=== PATIENT | female | born 1955 | race Caucasian/White ===

== ENCOUNTER → 2016-06-25 | Outpatient (REF) | payer BC ==
[~2016-06-25] MED LIST: COUM2.5T11 PO; LEVO25TA34 PO; LIOT25TA2 PO; LISI-538 PO; LYRI75CA PO; METF500T PO; METF750T PO; MILKSUS PO; MIRA3350 PO; PERC5TAB6 PO; PROA1AER IN; QVAR0.07 IN; SENO8.6T2 PO; TYLE325T5 PO; ZEST1TAB2 PO
== END ==
LOC: M LAB REF 16:21
PROVIDERS: ATTEND Nurse Practitioner Adult Health
DX: R35.0 Frequency of micturition (principal); E03.9 Hypothyroidism, unspecified

== ENCOUNTER → 2016-07-05 | Outpatient (CLI) | payer BC ==
--- NOTE | 2016-07-06 06:18 | ECHO ---
DATE OF PROCEDURE: 07/05/2016 REFERRING PHYSICIAN: Romi Telles. INDICATION: Heart failure unspecified. HEIGHT: 170 cm. WEIGHT: 152.9 kg. MEASUREMENTS: Left atrium: 3.3 cm Ventricular septum: 0.98 cm Posterior wall: 0.98 cm Left ventricle diastole: 4.6 cm Aortic root: 2.9 cm LVOT: 2.1 cm Inferior vena cava: 1.3 cm DOPPLER MEASUREMENTS: Aortic valve velocity: 176 cm/s LVOT velocity: 121 cm/s LVOT VTI: 25.3 cm Mitral E velocity: 67.1 cm/s Mitral A velocity: 67.6 cm/s Mitral deacceleration time: 222 ms Pulmonary artery systolic pressure 44 mmHg by pulmonary acceleration time method. MITRAL ANNULAR TISSUE DOPPLER: E-prime septal: 9.3 cm/s E-prime lateral: 9.8 cm/s DESCRIPTION: Rhythm was sinus. Image quality was fair. This was a 2D, M-mode, color flow Doppler and pulsed wave Doppler examination and included mitral annular tissue Doppler. No pericardial effusion. CONCLUSIONS: 1. Normal left ventricle internal dimensions and wall thickness. No regional wall motion abnormalities. Normal LV systolic function. LVEF 65% by visual estimate. LV diastolic function within normal limits for age. 2. Suggestive of moderate elevation of pulmonary artery systolic pressure.
== END ==
LOC: M CARPUL 07:40
PROVIDERS: ATTEND Nurse Practitioner Adult Health
DX: I50.9 Heart failure, unspecified (principal)

== ENCOUNTER → 2016-09-08 | Outpatient (REF) | payer BC | LOC: M LAB REF 16:35 | PROVIDERS: ATTEND Internal Medicine | DX: E03.9 Hypothyroidism, unspecified (principal) ==

== ENCOUNTER → 2016-10-28 | Outpatient (REF) | payer BC ==
[~2016-10-28] MED LIST changes: -COUM2.5T11 PO; +COUM2.5T17 PO; -METF500T PO; +METF500T13 PO; +PERC5TAB12 PO; -PERC5TAB6 PO; -PROA1AER IN; +PROAAER10 IN; -SENO8.6T2 PO; +SENO8.6T5 PO
== END ==
LOC: M LAB REF 16:47
PROVIDERS: ATTEND Internal Medicine
DX: E03.9 Hypothyroidism, unspecified (principal)

== ENCOUNTER → 2017-01-18 | Outpatient (REF) | payer BC | LOC: M LAB REF 14:57 | PROVIDERS: ATTEND Internal Medicine | DX: E03.9 Hypothyroidism, unspecified (principal); E78.2 Mixed hyperlipidemia ==

== ENCOUNTER → 2017-05-27 | Outpatient (REF) | payer BC ==
[2017-05-27 17:02] LABS: FREE T3 2.2 PG/ML (2.2-4.0)
== END ==
LOC: M LAB REF 16:19
DX: E03.9 Hypothyroidism, unspecified (principal)
CPT/HCPCS: 84481

== ENCOUNTER → 2017-10-14 | Outpatient (REF) | payer BC ==
[2017-10-14 17:45] LABS: FREE T3 6.9 PG/ML (2.2-4.0)
== END ==
LOC: M LAB REF 16:16
DX: E03.9 Hypothyroidism, unspecified (principal)
CPT/HCPCS: 84481

== ENCOUNTER → 2018-06-13 | Outpatient (CLI) | payer BC ==
[~2018-06-13] MED LIST changes: +ALEV220T26 PO; +FURO40TA2 PO; +LISI20TA PO; +MILK120011 PO; -MILKSUS PO; -QVAR0.07 IN; +QVAR40AE13 IN
[2018-06-13 09:26] LABS: HEMATOCRIT 40.8 % (36.0-47.0); HEMOGLOBIN 13.8 g/dl (12.0-15.5); MEAN CORPUSCULAR HEMOGLOBIN 30.6 pg (27.0-33.0); MEAN CORPUSCULAR HGB CONC 33.8 g/dl (32.0-36.5); MEAN CORPUSCULAR VOLUME 90.5 fl (80.0-96.0); PLATELET COUNT, AUTOMATED 276 10^3/uL (150-450); RED BLOOD COUNT 4.51 10^6/uL (4.00-5.40); WHITE BLOOD COUNT 5.5 10^3/uL (4.0-10.0)
--- NOTE | 2018-06-13 09:41 | ECGEPIP ---
Stationary ECG Study [facility] Test Date: 2018-06-13 Pat Name: ROLDAN HERNANDEZ Department: Room: - Gender: F Tram Operator: RF : 1955 Requested By: Abraham Castro Order Number: [id number] Reading MD: Susan Allen Measurements Intervals [place] Rate: 72 P: 52 [place]: 164 QRS: 9 QRSD: 92 T: 29 QT: 403 QTc: 443 Interpretive Statements SINUS RHYTHM Probably NORMAL BASELINE ARTIFACT MAKES ST INTERP DIFFICULT V5-6 C/W 07/08/14 Electronically Signed On 06-13-2018 9:41:18 EST by Susan Allen
[2018-06-13 09:42] LABS: INR 0.96; PROTHROMBIN TIME 12.8 SECONDS (12.1-14.4)
[2018-06-13 09:51] LABS: ALBUMIN 4.1 GM/DL (3.2-5.2); ALT/SGPT 50 U/L (12-78); BILIRUBIN,TOTAL 0.4 MG/DL (0.2-1.0); BLOOD UREA NITROGEN 23 MG/DL (7-18); CALCIUM LEVEL 9.3 MG/DL (8.8-10.2); CARBON DIOXIDE LEVEL 26 MEQ/L (21-32); CHLORIDE LEVEL 102 MEQ/L (98-107); CREATININE FOR GFR 0.99 MG/DL (0.55-1.30); GLOMERULAR FILTRATION RATE > 60.0 (>45); GLUCOSE, FASTING 160 MG/DL (70-100); POTASSIUM SERUM 4.3 MEQ/L (3.5-5.1); SODIUM LEVEL 137 MEQ/L (136-145); TOTAL PROTEIN 7.2 GM/DL (6.4-8.2)
[2018-06-13 09:56] LABS: ERYTHROCYTE SEDIMENTATION RATE 15 mm/hr (0-30)
--- NOTE | 2018-06-13 09:56 | REP ---
Chest two views HISTORY: Preop Comparison: 07/08/2014 The lungs are clear. The heart is normal in size. The pulmonary vasculature is normal in appearance. The bony structure is intact. IMPRESSION: No acute disease. Electronically Signed by Jones Kahn MD 06/13/2018 09:47 A
== END ==
LOC: M LAB 08:16
PROVIDERS: ATTEND Orthopaedic Surgery
DX: Z01.818 Encounter for other preprocedural examination (principal); M17.11 Unilateral primary osteoarthritis, right knee

== ENCOUNTER → 2018-12-22 | Outpatient (REF) | payer BC ==
[~2018-12-22] MED LIST changes: -LISI20TA PO; +LISI20TA18 PO
== END ==
LOC: M LAB REF 16:21
PROVIDERS: ATTEND Internal Medicine
DX: E03.9 Hypothyroidism, unspecified (principal)

== ENCOUNTER → 2019-06-25 | Outpatient (REF) | payer BC ==
[~2019-06-25] MED LIST changes: -LIOT25TA2 PO; +LIOT25TA8 PO; -LISI20TA18 PO; +LISI20TA19 PO; -METF750T PO; +METF750T36 PO
[2019-06-27 08:06] LABS: LDL DIRECT 213 mg/dL (0-99)
== END ==
LOC: M LAB REF 16:48
PROVIDERS: ATTEND Internal Medicine
DX: E03.9 Hypothyroidism, unspecified (principal); E78.2 Mixed hyperlipidemia

== ENCOUNTER → 2020-01-30 | Outpatient (REF) | payer BC ==
[~2020-01-30] MED LIST changes: -LISI20TA19 PO; +LISI20TA35 PO
== END ==
LOC: M LAB REF 17:11
PROVIDERS: ATTEND Internal Medicine
DX: E03.9 Hypothyroidism, unspecified (principal)

== ENCOUNTER 2020-11-23 20:42 | Emergency (ER) | payer BC ==
[~2020-11-23] VITALS: Ht 170.2 cm; Wt 134.0 kg
[~2020-11-23 20:42] MED LIST changes: -LISI-538 PO; +LISI20TA33 PO
[2020-11-23 21:13] LABS: BASO # 0.1 10^3/uL (0.0-0.2); BASO % 0.8 % (0.0-1.0); EOS # 0.6 10^3/uL (0.0-0.5); HEMATOCRIT 43.5 % (36.0-47.0); HEMOGLOBIN 15.4 g/dl (12.0-15.5); LYMPH # 1.4 10^3/uL (1.5-5.0); LYMPH % 22.3 % (24.0-44.0); MEAN CORPUSCULAR HGB CONC 35.4 g/dl (32.0-36.5); MEAN CORPUSCULAR VOLUME 90.4 fl (80.0-96.0); MONO # 0.5 10^3/uL (0.0-0.8); MONO % 7.1 % (2.0-8.0); NEUTROPHILS # 3.8 10^3/uL (1.5-8.5); NEUTROPHILS % 60.3 % (36.0-66.0); PLATELET COUNT, AUTOMATED 319 10^3/uL (150-450); RED BLOOD COUNT 4.81 10^6/uL (4.00-5.40); WHITE BLOOD COUNT 6.3 10^3/uL (4.0-10.0)
[2020-11-23] MEDS ORDERED: MORPHINE 2 MG/ML 1ML VIAL (J2270) IV ONE (21:20)
[2020-11-23 22:42] LABS: ALT/SGPT 44 U/L (12-78); BILIRUBIN,DIRECT < 0.1 MG/DL (0.0-0.2); BILIRUBIN,TOTAL 0.5 MG/DL (0.2-1.0); BLOOD UREA NITROGEN 19 MG/DL (7-18); CALCIUM LEVEL 9.3 MG/DL (8.8-10.2); CARBON DIOXIDE LEVEL 29 MEQ/L (21-32); CHLORIDE LEVEL 97 MEQ/L (98-107); CK-MB VALUE MASS 1.3 NG/ML (<3.6); CPK CREATINE PHOSPHOKINASE 133 U/L (26-192); CREATININE FOR GFR 1.12 MG/DL (0.55-1.30); FREE T4 0.31 NG/DL (0.76-1.46); GLOMERULAR FILTRATION RATE 52.1 (>45); GLUCOSE, FASTING 382 MG/DL (70-100); LIPASE 161 U/L (73-393); MB/CK RELATIVE INDEX 0.98 (< OR =4); POTASSIUM SERUM 4.4 MEQ/L (3.5-5.1); SODIUM LEVEL 133 MEQ/L (136-145); TOTAL PROTEIN 7.7 GM/DL (6.4-8.2); TROPONIN I < 0.02 NG/ML (< 0.10)
--- NOTE | 2020-11-23 22:45 | REPVR ---
PROCEDURE INFORMATION: Exam: XR Chest Exam date and time: 11/23/2020 9:23 PM Age: 65 years old Clinical indication: Pain; Other: Un specified; Additional info: Chest pain TECHNIQUE: Imaging protocol: XR of the chest. Views: 2 views. COMPARISON: CR Chest, 2 view PA, Lat 06/13/2018 8:41 AM FINDINGS: Lungs: The lungs are unchanged. There are no interval infiltrates. Pleural spaces: Unremarkable. No pleural effusion. No pneumothorax. Heart/Mediastinum: The heart and mediastinum are unchanged. Bones/joints: Unremarkable. Soft tissues: There are moderately generous overlying soft tissues. IMPRESSION: Negative chest without change from 06/13/2018. Electronically signed by: Alf Wong On 11/23/2020 22:44:58 PM
[2020-11-23 23:00] VITALS: BP 159/83
--- NOTE | 2020-11-24 20:31 | ECGEPIP ---
[facility] - ED Test Date: 2020-11-23 Pat Name: ROLDAN HERNANDEZ Department: Room: - Gender: Female [employer] Representative: Shahriar TAVAREZ : 1955 Requested By: HARVINDER Rosario Order Number: [id number] Reading MD: Alysia White Measurements Intervals [place] Rate: 96 P: 56 MA: 154 QRS: -27 QRSD: 80 T: 27 QT: 348 QTc: 439 Interpretive Statements Normal sinus rhythm increased rate 06/13/18 Electronically Signed on 11-24-2020 20:31:22 EDT by Alysia White
== END 2020-11-23 23:15 | disposition home or self-care (01) ==
LOC: M ED 20:42
DX: R07.89 Other chest pain (principal); E03.9 Hypothyroidism, unspecified; E11.65 Type 2 diabetes mellitus with hyperglycemia; I10 Essential (primary) hypertension; E78.5 Hyperlipidemia, unspecified; G47.33 Obstructive sleep apnea (adult) (pediatric); Z79.84 Long term (current) use of oral hypoglycemic drugs; Z79.899 Other long term (current) drug therapy
CPT/HCPCS: 71046; 80048; 80076; 82550; 82553; 83690; 84439; 84443; 84484; 85025; 93005; 93041; 94760; 96374; 99285; J2270

== ENCOUNTER → 2021-02-17 | Outpatient (REF) | payer BC | LOC: M LAB REF 16:18 | PROVIDERS: ATTEND Internal Medicine | DX: E03.9 Hypothyroidism, unspecified (principal) ==

== ENCOUNTER → 2021-08-03 | Outpatient (CLI) | payer MEDICARE | LOC: M WHC 09:40 | PROVIDERS: ATTEND Obstetrics & Gynecology | DX: Z12.31 Encounter for screening mammogram for malignant neoplasm of breast (principal); Z80.41 Family history of malignant neoplasm of ovary; Z85.42 Personal history of malignant neoplasm of other parts of uterus ==

== ENCOUNTER → 2022-04-12 | Outpatient (REF) | payer MEDICARE | LOC: M LAB REF 16:09 | PROVIDERS: ATTEND Internal Medicine | DX: E03.9 Hypothyroidism, unspecified (principal) ==

== ENCOUNTER → 2022-07-19 | Outpatient (REF) | payer MEDICARE | LOC: M LAB REF 16:22 | PROVIDERS: ATTEND Internal Medicine | DX: E03.9 Hypothyroidism, unspecified (principal) ==

== ENCOUNTER → 2022-10-12 | Outpatient (REF) | payer MEDICARE ==
[2022-10-14 08:11] LABS: LDL DIRECT 105 mg/dL (0-99)
== END ==
LOC: M LAB REF 17:17
PROVIDERS: ATTEND Internal Medicine
DX: E03.9 Hypothyroidism, unspecified (principal)

== ENCOUNTER → 2023-01-14 | Outpatient (REF) | payer MEDICARE ==
[2023-01-16 10:07] LABS: LDL DIRECT 124 mg/dL (0-99)
== END ==
LOC: M LAB REF 16:21
PROVIDERS: ATTEND Internal Medicine
DX: E03.9 Hypothyroidism, unspecified (principal); E78.2 Mixed hyperlipidemia

== ENCOUNTER → 2023-04-04 | Outpatient (REF) | payer BC, MEDICARE | LOC: M SFHCWAGY 17:14 | PROVIDERS: ATTEND Nurse Practitioner Family | DX: Z12.72 Encounter for screening for malignant neoplasm of vagina (principal) | CPT/HCPCS: 87624; G0123 ==

== ENCOUNTER → 2023-04-04 | Outpatient (CLI) | payer MEDICARE | LOC: M WHC 12:57 | PROVIDERS: ATTEND Nurse Practitioner Family | DX: Z12.31 Encounter for screening mammogram for malignant neoplasm of breast (principal) ==

== ENCOUNTER → 2023-06-20 | Outpatient (REF) | payer MEDICARE | LOC: M LAB REF 09:50 | PROVIDERS: ATTEND Internal Medicine | DX: E78.2 Mixed hyperlipidemia (principal) ==

== ENCOUNTER 2023-08-16 12:48 | Emergency (ER) | payer MEDICARE ==
[~2023-08-16] VITALS: Ht 170.2 cm; Wt 124.1 kg
[~2023-08-16 12:48] MED LIST changes: -CIPR-249 PO; -METR-265 PO
[2023-08-16 13:56] LABS: BASO % 0.2 % (0.0-1.0); EOS # 0.1 10^3/uL (0.0-0.5); EOS % 0.5 % (0.0-3.0); HEMOGLOBIN 16.1 g/dl (12.0-15.5); LYMPH # 0.6 10^3/uL (1.5-5.0); LYMPH % 5.1 % (24.0-44.0); MEAN CORPUSCULAR HEMOGLOBIN 30.5 pg (27.0-33.0); MEAN CORPUSCULAR HGB CONC 33.5 g/dl (32.0-36.5); MEAN CORPUSCULAR VOLUME 90.9 fl (80.0-96.0); MONO # 0.9 10^3/uL (0.0-0.8); MONO % 7.6 % (2.0-8.0); NEUTROPHILS # 10.6 10^3/uL (1.5-8.5); NEUTROPHILS % 86.3 % (36.0-66.0); PLATELET COUNT, AUTOMATED 289 10^3/uL (150-450); RED BLOOD COUNT 5.28 10^6/uL (4.00-5.40); WHITE BLOOD COUNT 12.3 10^3/uL (4.0-10.0)
[2023-08-16 14:17] LABS: LIPASE 44 U/L (12-53)
[2023-08-16 14:19] LABS: ALBUMIN 4.1 G/DL (3.2-5.2); ALKALINE PHOSPHATASE 81 U/L (46-116); ALT/SGPT 38 U/L (7.0-40); AST/SGOT 23 U/L (<34); BILIRUBIN,DIRECT 0.1 MG/DL (<0.4); BILIRUBIN,TOTAL 0.7 MG/DL (0.3-1.2); BLOOD UREA NITROGEN 25 MG/DL (9-23); CALCIUM LEVEL 10.6 MG/DL (8.3-10.6); CARBON DIOXIDE LEVEL 27 MMOL/L (20-31); CHLORIDE LEVEL 100 MMOL/L (98-107); CREATININE FOR GFR 0.72 MG/DL (0.55-1.30); GLOMERULAR FILTRATION RATE > 60.0 (>45); GLUCOSE, FASTING 173 MG/DL (74-106); POTASSIUM SERUM 3.9 MMOL/L (3.5-5.1); SODIUM LEVEL 135 MMOL/L (136-145); TOTAL PROTEIN 7.5 G/DL (5.7-8.2)
[2023-08-16] MEDS ORDERED: ISOVUE-370 76% 100ML VIAL As Ordered ONE (17:18)
[2023-08-16] MEDS: ACETAMINOPHEN *IV* 1,000 MG in IV 1 EA IV ONE (17:31)
[2023-08-16 18:08] VITALS: BP 138/75; TEMP 98.3; O2SAT 99
[2023-08-16] MEDS ORDERED: METR-265 PO (18:45)
[2023-08-16] MEDS ORDERED: CIPR-249 PO (18:45)
== END 2023-08-16 18:56 | disposition home or self-care (01) ==
LOC: M ED 12:48
DX: K52.9 Noninfective gastroenteritis and colitis, unspecified (principal); R16.0 Hepatomegaly, not elsewhere classified; K76.0 Fatty (change of) liver, not elsewhere classified; E11.9 Type 2 diabetes mellitus without complications; I10 Essential (primary) hypertension; E78.5 Hyperlipidemia, unspecified; J45.909 Unspecified asthma, uncomplicated; E03.9 Hypothyroidism, unspecified; Z79.899 Other long term (current) drug therapy
CPT/HCPCS: 74177; 80048; 80076; 83605; 83690; 85025; 96365; 99284; J0131; Q9967

== ENCOUNTER → 2023-08-16 | Outpatient (REF) | payer MEDICARE ==
[~2023-08-16] MED LIST changes: +CIPR-249 PO; +METR-265 PO
== END ==
LOC: M LAB REF 17:14
PROVIDERS: ATTEND Physician Assistant Medical
DX: R10.9 Unspecified abdominal pain (principal)

== ENCOUNTER → 2024-02-22 | Outpatient (REF) | payer MEDICARE ==
[~2024-02-22] MED LIST changes: +CIPR-249 PO; +METR-265 PO
== END ==
LOC: M LAB REF 17:28
PROVIDERS: ATTEND Internal Medicine
DX: E03.9 Hypothyroidism, unspecified (principal)

== ENCOUNTER → 2024-05-23 | Outpatient (REF) | payer MEDICARE ==
[2024-05-25 08:53] LABS: LDL DIRECT 142 mg/dL (<100)
== END ==
LOC: M LAB REF 13:57
PROVIDERS: ATTEND Internal Medicine
DX: E78.2 Mixed hyperlipidemia (principal)

== ENCOUNTER → 2024-08-01 | Outpatient (CLI) | payer MEDICARE | LOC: M WHC 12:44 | PROVIDERS: ATTEND Nurse Practitioner Family | DX: Z12.31 Encounter for screening mammogram for malignant neoplasm of breast (principal); R92.313 Mammographic fatty tissue density, bilateral breasts ==

== ENCOUNTER → 2024-08-01 | Outpatient (CLI) | payer MEDICARE | LOC: M WHC 13:58 | PROVIDERS: ATTEND Nurse Practitioner Family | DX: M85.852 Other specified disorders of bone density and structure, left thigh (principal); Z13.820 Encounter for screening for osteoporosis; N95.1 Menopausal and female climacteric states ==

== ENCOUNTER → 2024-08-28 | Outpatient (REF) | payer MEDICARE ==
[2024-08-30 12:12] LABS: LDL DIRECT 182 mg/dL (<100)
== END ==
LOC: M LAB REF 17:24
PROVIDERS: ATTEND Internal Medicine
DX: E78.2 Mixed hyperlipidemia (principal)

== ENCOUNTER → 2025-02-27 | Outpatient (REF) | payer MEDICARE ==
[~2025-02-27] MED LIST changes: +SENN-225 PO; -SENO8.6T5 PO
[2025-03-02 01:02] LABS: LDL DIRECT 97 mg/dL (<100)
== END ==
LOC: M LAB REF 17:56
PROVIDERS: ATTEND Internal Medicine
DX: E78.2 Mixed hyperlipidemia (principal)

== ENCOUNTER 2025-04-29 06:28 | Day surgery (SDC) | payer MEDICARE ==
[~2025-04-29] VITALS: Ht 170.2 cm; Wt 127.9 kg
[~2025-04-29 06:28] MED LIST changes: +JARD1TAB3 PO; +LEVO100T5 PO
[2025-04-29] MEDS ORDERED: MIDAZOLAM INJ 2 MG/2 ML VIAL As Ordered ONE (06:52)
[2025-04-29] MEDS ORDERED: LR 1,000 ML IV SCH (07:00)
[2025-04-29] MEDS: PHENYLEPHRINE 2.5% OPHTH SOL 2ML OS SCH (07:07)
[2025-04-29] MEDS: CYCLOPENTOLATE 1% OPHTH SOLN 2 ML BTL OS SCH (07:07)
[2025-04-29] MEDS: FLURBIPROFEN 0.03% OPHTH SOLN 2.5 ML OS SCH (07:07)
[2025-04-29] MEDS: TETRACAINE 0.5% OPHTH SOLN 4ML OS SCH (07:08)
[2025-04-29] MEDS ORDERED: DEXTROSE 50% 50 ML SYRINGE IV PRN (07:20)
[2025-04-29] MEDS ORDERED: GLUCOSE 4 GM CHEW PO PRN (07:20)
[2025-04-29] MEDS ORDERED: GLUCAGON INJ 1 MG VIAL SC PRN (07:20)
[2025-04-29] MEDS: INSULIN LISPRO (NovoLOG) PER UNIT SC PRN (07:34)
[2025-04-29] MEDS: CEFUROXIME 1 MG/0.1 ML INTRACAMERAL INJ As Ordered ONE (08:40)
[2025-04-29] MEDS: LIDOCAINE 1% SDV 5 ML VIAL As Ordered ONE (08:40)
[2025-04-29 09:05] VITALS: BP 126/80; TEMP 97.2; O2SAT 96
== END 2025-04-29 09:18 | disposition home or self-care (01) ==
LOC: M SDC 06:28
PROVIDERS: ATTEND Ophthalmology
DX: H40.1121 Primary open-angle glaucoma, left eye, mild stage (principal); E11.36 Type 2 diabetes mellitus with diabetic cataract; H25.12 Age-related nuclear cataract, left eye; I10 Essential (primary) hypertension; E03.9 Hypothyroidism, unspecified; E78.00 Pure hypercholesterolemia, unspecified; G47.30 Sleep apnea, unspecified; Z79.899 Other long term (current) drug therapy; Z79.890 Hormone replacement therapy; Z79.84 Long term (current) use of oral hypoglycemic drugs; R32 Unspecified urinary incontinence; Z90.710 Acquired absence of both cervix and uterus
CPT/HCPCS: 66991; C1783; J0697; J1815; J2250; J3010; V2788